=== PATIENT | male | born 1965 | race Caucasian/White ===

== ENCOUNTER → 2019-11-01 | Outpatient (CLI) | payer SELFPAY ==
[2019-11-01 13:52] VITALS: BP 131/80
--- NOTE | 2019-11-02 09:07 | Cardiology Stress Test Report ---
Stress Test Report Date of Procedure/Referring: Date of Procedure: Nov 02, 2019 PCP Sachin Hernandez MD Admitting Physician No,Local Physician Indications: Chest pain Baseline Blood Pressure: Blood Pressure Systolic: 131 Blood Pressure Diastolic: 80 Vital Signs Date Time Temp Pulse Resp B/P (MAP) Pulse Ox O2 Delivery O2 Flow Rate FiO2 11/01/19 13:52 62 131/80 (97) 98 Baseline Vital Signs Vital Signs Date Time Temp Pulse Resp B/P (MAP) Pulse Ox O2 Delivery O2 Flow Rate FiO2 11/01/19 13:52 62 131/80 (97) 98 Baseline EKG: Baseline EKG: normal sinus rhythm Summary: After explaining the procedure and details to the patient, he signed the consent and was brought to the stress nuclear laboratory. Patient exercised on standard Richard protocol, EKG, heart rate and blood pressure were monitored continuously, resting and stress doses of radio tracer were injected, imaging was acquired and reviewed in the short axis, horizontal long axis and vertical long axis views Patient was able to exercise for a total of [ 6] minutes on Richard protocol, METs 7.3 Maximum heart rate 145 Maximum blood pressure 165/95 Stress EKG, Minimal nondiagnostic changes Recovery EKG, Return to baseline TID: 0.89 SSS: 2 SDS: 2 EF: 59 Conclusion: 1. Fair exercise tolerance for total of 6 minutes on standard Richard protocol 7.3 METs achieving 86 percent of maximum expected heart rate. 2. Appropriate heart rate and blood pressure response to exercise returned to baseline during recovery. 3. Minimal nondiagnostic EKG changes with exercise returned to baseline during recovery. 4. No significant ischemia or infarction on SPECT images. 5. Normal LV size and function, EF 59 percent SACHIN HERNANDEZ MD Nov 02, 2019 09:07
== END ==
LOC: CARD 10:27
PROVIDERS: ATTEND Internal Medicine Cardiovascular Disease
DX: R07.9 Chest pain, unspecified (principal); I07.1 Rheumatic tricuspid insufficiency
CPT/HCPCS: 78452; 93017; 93306; A9502